=== PATIENT | male | born 1970 | race Caucasian/White ===

== ENCOUNTER 2021-05-25 06:20 | Emergency (ER) | payer BC, OTHER ==
[2021-05-25 06:34] VITALS: RESP 18; TEMP 98.2
[2021-05-25] MEDS ORDERED: DIPH,PERTUS(ACELL)TETVAC-LF 0.5 ML VIAL IM ONE (06:42)
[2021-05-25] MEDS ORDERED: LIDOCAINE 1% INJ 10MG/ML (20 ML MDV) SQ ONE (06:42)
[2021-05-25] MEDS ORDERED: CEPHALEXIN 500MG STARTER PACK 4 CAP BTL PO STA (06:42)
--- NOTE | 2021-05-25 06:57 | ED ---
General Adult HPI - General Chief complaint: Wound/Laceration Stated complaint: Rt Hand Laceration ,[facility] Time Seen by Provider: 05/25/21 06:34 Source: patient Mode of arrival: ambulatory Limitations: no limitations - History of Present Illness Initial comments: 51-year-old male with a past medical history of hypertension presents to the emergency room for a chief complaint of laceration. Patient was at work when he cut his knuckle on a blade on a piece of equipment. Patient denies any difficulty moving his finger. Tetanus is not up-to-date. Patient denies any other injuries.Patient has no other complaints at this time including shortness of breath, chest pain, abdominal pain, nausea or vomiting, headache, or visual changes. - Related Data Previous Rx's Medication Instructions Recorded Cephalexin [Keflex] 500 mg PO QID 5 Days #20 cap 05/25/21 Allergies Allergy/AdvReac Type Severity Reaction Status Date / Time No Known Allergies Allergy Verified 05/25/21 06:34 Review of Systems ROS Statement: Those systems with pertinent positive or pertinent negative responses have been documented in the HPI. ROS Other: All systems not noted in ROS Statement are negative. Past Medical History Past Medical History: Hypertension History of Any Multi-Drug Resistant Organisms: None Reported Past Surgical History: No Surgical Hx Reported Past Psychological History: No Psychological Hx Reported Smoking Status: Never smoker Past Alcohol Use History: None Reported Past Drug Use History: None Reported General Exam Limitations: no limitations General appearance: alert Head exam: Present: atraumatic Eye exam: Present: normal appearance, PERRL, EOMI. Absent: scleral icterus, conjunctival injection ENT exam: Present: normal exam, mucous membranes moist Neck exam: Present: normal inspection, full ROM. Absent: tenderness Respiratory exam: Present: normal lung sounds bilaterally. Absent: respiratory distress, wheezes Cardiovascular Exam: Present: regular rate, normal rhythm, normal heart sounds Extremities exam: Present: full ROM (Full range of motion of the right hand including the right second digit. Full flexion and extension of the right MCP joint, PIP joint, and DIP joint of the second finger.), normal capillary refill (capillary refill less than 2 seconds in all digits of the right hand including the right second digit. Radial pulses 2+.), other (Patient has a 2 cm laceration on the dorsal aspect of the right second MCP joint.) Neurological exam: Present: alert Course Vital Signs 05/25/21 06:31 Temperature 98.2 F Pulse Rate 77 Respiratory 18 Rate Blood Pressure 154/97 O2 Sat by Pulse 98 Oximetry Procedures - Laceration Laceration #1 Consent Obtained: verbal consent Indication: laceration Site: hand Size (cm): 2 Description: linear Depth: simple, single layer Anesthetic Used: lidocaine 1% Anesthesia Technique: local infiltration Amount (mls): 3 Pre-repair: wound explored, irrigated extensively, deep structures intact (I do not see any laceration to the tendon) Type of Sutures: nylon Size of Sutures: 4-0 Number of Sutures: 5 Technique: simple, interrupted Patient Tolerated Procedure: well, no complications Medical Decision Making - Medical Decision Making Patient has a 2 cm laceration over the right second dorsal MCP joint. Thorough inspection was performed. I do not see any tendon laceration at this time. Wound was irrigated with saline pressure irrigation. X-ray was obtained which showed no fracture or foreign bodies. Wound was sutured with 5 simple sutures. Laceration did involve the joint capsule and therefore we will recommend patient sees orthopedics. Tetanus was updated. He will return here for any worsening symptoms. Disposition Clinical Impression: Laceration Disposition: HOME SELF-CARE Condition: Good Instructions (If sedation given, give patient instructions): Laceration (ED), Care For Your Stitches (ED) Additional Instructions: Please keep the wound clean with gentle soap and water. Apply antibiotic twice daily. Follow-up with orthopedics. Return to the emergency room for suture removal in 10 days. In the meantime you can monitor for any signs of infection such as spreading or streaking redness, drainage, or fever and return if these occur. Prescriptions: Cephalexin [Keflex] 500 mg PO QID 5 Days #20 cap Is patient prescribed a controlled substance at d/c from ED?: No Referrals: Robinson Benson DO [Primary Care Provider] - 1-2 days Jean-Paul Lee DO [Doctor of Osteopathic Medicine] - 1-2 days Time of Disposition: 07:40
--- NOTE | 2021-05-25 07:09 | XR ---
EXAMINATION TYPE: XR hand complete RT DATE OF EXAM: 05/25/2021 CLINICAL HISTORY: Laceration injury with pain. TECHNIQUE: Frontal, lateral and oblique images of the right hand are obtained. COMPARISON: None. FINDINGS: There is no acute fracture/dislocation evident in the right hand. The joint spaces in the right hand appear within normal limits. The overlying soft tissue appears unremarkable without suspi cious radiodense foreign body identified. IMPRESSION: As above.
[2021-05-25 08:12] VITALS: BP 142/88; PULSE 80
== END 2021-05-25 08:12 | disposition home or self-care (01) ==
LOC: EC 06:20
DX: S61.411A Laceration without foreign body of right hand, initial encounter (principal); I10 Essential (primary) hypertension; W26.8XXA Contact with other sharp object(s), not elsewhere classified, initial encounter
CPT/HCPCS: 99283; 90471; 12001; 73130; 90715; J2001